=== PATIENT | female | born 1960 | race Caucasian/White ===

== ENCOUNTER → 2023-12-31 15:51 | Outpatient (REF) | payer OTHER, SELFPAY | LOC: HWWDC 15:51 | PROVIDERS: ATTENDING PHYSICIAN Physician Assistant Medical | DX: Z12.31 Encounter for screening mammogram for malignant neoplasm of breast (principal) | CPT/HCPCS: 77063; 77067 ==

== ENCOUNTER 2024-02-21 10:03 | Emergency (ER) | payer OTHER, SELFPAY ==
[2024-02-21 10:05] VITALS: BP 152/86
--- NOTE | 2024-02-21 11:07 | ED.GENMED ---
History of Present Illness
<Latha Yoder PA-C - Last Filed: 02/21/24 18:28>
General
Chief Complaint: Skin Problem
Source: patient
Exam Limitations: none
Time Seen by Provider: 02/21/24 10:54
Nursing documentation reviewed up to this point in time: agreed with
History of Present Illness
History of Present Illness:
Patient is a 63 year old female presenting to the emergency department for evaluation of drainage from surgical scar on left breast. Patient reports mastopraxy and capsulectomy in April 2023 w/ Dr. Skaggs at [facility]. She states
surgery was without complications and everything healed well. Her last postoperative visit was November 2023.
Starting 1 week ago�patient reports that she noticed some redness around the scar and tenderness. This morning she states that it drained. Patient states drainage was bloody with small white material, as well. She did contact her plastic surgeon
and sent pictures who will see patient in office this week. He recommended topical antibiotic.
Patient denies any systemic signs of infection including fever or chills. Pain in left breast has decreased since drainage.
Review of Systems
<Latha Yoder PA-C - Last Filed: 02/21/24 18:28>
Review of Systems
Allergies reviewed?: Yes
All Other Systems: ROS reviewed and negative except as documented in HPI and ROS
Phy Exam
<Latha Yoder PA-C - Last Filed: 02/21/24 18:28>
Physical Exam
Physical Exam:
Vitals: Mildly hypertensive, otherwise patient's vital signs are stable. Afebrile
General: Patient is well appearing, no acute distress
Skin: Small amount of wound dehiscence of surgical scar left breast, wound edges nearly proximal. Mild surrounding erythema without any red streaking. No induration or fluctuance
Head: Normocephalic, atraumatic
Throat: Protecting airway
Neck: Normal ROM, no cervical spine tenderness
Cardiac: Regular rate and rhythm.
Pulm: No apparent respiratory distress. Lungs clear bilaterally
Abdomen: Nondistended
Extremities: No evidence of cyanosis or edema
Neuro: Grossly intact
Psychiatric: Normal affect.
Course
<Latha Yoder PA-C - Last Filed: 02/21/24 18:28>
Orders/Labs/Results
Orders:
Orders
02/21/24 11:36
Wound Culture [Wound/Abscess/Other Culture] Urgent
TRACEE Source: Breast
Specimen Description: Left
Date Specimen was Collected: 02/21/24
Time Specimen was Collected: :
Vital Signs
Initial and Last Documented VS:
Initial Vital Signs
Temp Pulse Resp BP Pulse Ox
98.4 F 70 16 152/86 100
02/21/24 10:05 02/21/24 10:05 02/21/24 10:05 02/21/24 10:05 02/21/24 10:05
Last Documented Vital Signs
Temp Pulse Resp BP Pulse Ox
98.4 F 70 16 129/80 100
02/21/24 10:05 02/21/24 11:39 02/21/24 10:05 02/21/24 11:39 02/21/24 10:05
<Ottoniel Terrell DO - Last Filed: 02/21/24 11:18>
Orders/Labs/Results
Orders:
Orders
02/21/24 11:36
Wound Culture [Wound/Abscess/Other Culture] Urgent
TRACEE Source: Breast
Specimen Description: Left
Date Specimen was Collected: 02/21/24
Time Specimen was Collected: :
Vital Signs
Initial and Last Documented VS:
Initial Vital Signs
Temp Pulse Resp BP Pulse Ox
98.4 F 70 16 152/86 100
02/21/24 10:05 02/21/24 10:05 02/21/24 10:05 02/21/24 10:05 02/21/24 10:05
Last Documented Vital Signs
Temp Pulse Resp BP Pulse Ox
98.4 F 70 16 129/80 100
02/21/24 10:05 02/21/24 11:39 02/21/24 10:05 02/21/24 11:39 02/21/24 10:05
<Latha Yoder PA-C - Last Filed: 02/21/24 18:28>
MDM/Problems Addressed
Differential Diagnosis Includes:
Not limited to: Wound dehiscence, cellulitis, abscess
MDM/Problems Addressed:
63-year-old female presenting with small area of wound dehiscence to left breast with minimal drainage. No fevers, chills, chest pain, shortness of breath. Patient is currently approximately 9 months postop from uncomplicated breast surgery.
Patient mildly hypertensive with otherwise stable vital signs on arrival. She is afebrile. On exam�patient is well-appearing, no apparent distress. There is a very small area of wound dehiscence of left breast on surgical scar with mild
surrounding erythema. No red streaking. There is no fluctuance or induration. No signs of abscess or significant cellulitis. Very minimal amount of purulent drainage. Wound culture was obtained which will be sent. Suspect likely seroma versus
retained suture. Will start topical antibiotics. Will provide prescription for oral antibiotic if symptoms persist/worsen by tomorrow. Patient will follow-up with plastic surgeon this week for further evaluation. Return precautions discussed.
Chronic conditions affecting care:
N/A
Acute Exacerbation and/or Progression of Chronic Illness:
N/A
<Latha Yoder PA-C - Last Filed: 02/21/24 18:28>
*Pulse Oximetry
Patient hypoxic: no
*EKG
Interpreted by ED Provider?: NA
*Supervising Producer Interpretation
Rate: Supervising Producer- N/A
*Critical Care Note
Total Time (30-74mins, 75-104mins- exclusive of procedures): Not Applicable
ED Attending Note
<Latha Yoder PA-C - Last Filed: 02/21/24 18:28>
-
Portions of this chart may have been created with voice recognition software.� Occasional wrong word or��sound alike� substitutions may have occurred due to the inherent limitations of voice recognition software.
<Ottoniel Terrell DO - Last Filed: 02/21/24 11:18>
ED Attending Note
Patient seen and examined by attending physician: Yes
I performed the substantive portion of visit, reviewed & personally made and approve the management plan that is documented in note by myself or CECILY.: Yes
ED Attending Note:
Very small relatively well-approximated wound dehiscence. There are some pinkness around the wound but no significant deep redness to suspect cellulitis. No obvious drainage or fluctuance on my exam. Patient is already connected with her surgeon
and will follow-up this week. Add topicals. Also discussed oral antibiotics. Will write a prescription patient will watch closely and only fill if redness worsens
Discharge Plan
Departure
Patient Disposition: Home (Routine Discharge)
Date of Disposition: 02/21/24
Time of Disposition: 11:19
Patient with high blood pressure during this ER visit?: Yes
Condition: Good
Discharge Problem:
Dehiscence of wound
Instructions: Wound Dehiscence (DC), BLOOD PRESSURE
Prescriptions:
New
mupirocin 2 % ointment
1 applic topical TID Qty: 22 0RF
Rx Instructions:
to left breast
cephalexin 500 mg capsule
500 mg PO QID 7 Days Qty: 28 0RF
Referrals:
Eleno Shankar MD [Non-Admitting Privileges] - Follow up in 2-3 days
Heather Solorzano PA-C [Family Provider] -
Activity Restrictions/Additional Instructions:
RETURN TO THE EMERGENCY DEPARTMENT WITH ANY FEVERS, CHILLS, OR SIGNS OF WORSENING INFECTION INCLUDING SIGNIFICANT REDNESS OR SWELLING AROUND WOUND, PUS DRAINING FROM WOUND, RED STREAKING AWAY FROM WOUND, OR ANY OTHER CONCERNS
-As discussed that you should use the topical antibiotic 2-3 times a day to affected area. If signs of infection worsen you can start oral antibiotics as directed.
-Keep area clean and dry.
-We will contact you if your wound culture is positive.
-Follow-up with plastic surgeon this week for further evaluation/management
Monitor your symptoms closely and return to the emergency department with any acute worsening/new symptoms or any other concerns
Interventions
Interventions:
*Risk Screen - Suicide Last Done: 02/21/24 11:37
*General Assessment Last Done: 02/21/24 11:37
*Neglect/Abuse Screening Last Done: 02/21/24 11:37
ED- Fall Risk Assessment Last Done: 02/21/24 11:48
*ED COVID-19 Vaccine History Last Done: 02/21/24 11:37
*Nursing Disposition Last Done: 02/21/24 11:48
ED-Skin Assessment Last Done: 02/21/24 11:08
Discharge Date and Time
Discharge Date/Time: 02/21/24 11:49
Print Language: GABONESE
[2024-02-21 11:39] VITALS: BP 129/80
== END 2024-02-21 11:49 | disposition home or self-care (01) ==
LOC: EMR 10:03
PROVIDERS: EMERGENCY PHYSICIAN Emergency Medicine; FAMILY PHYSICIAN Physician Assistant Medical
DX: T81.31XA Disruption of external operation (surgical) wound, not elsewhere classified, initial encounter (principal); Y83.9 Surgical procedure, unspecified as the cause of abnormal reaction of the patient, or of later complication, without mention of misadventure at the time of the procedure
CPT/HCPCS: 99283; 87070; 87205